=== PATIENT | male | born 1960 | race Caucasian/White ===

== ENCOUNTER 2017-09-13 19:54 | Emergency (ER) | payer SELFPAY ==
--- NOTE | 2017-09-13 20:29 | RADIOLOGY REPORT ---
EXAMINATION: XR HAND, RIGHT CLINICAL INFORMATION: Hit with baseball. Swelling. COMPARISON: None TECHNIQUE: PA, lateral, and oblique views of the right hand. FINDINGS: There is no fracture or dislocation. Alignment is anatomic. Mild degenerative changes throughout the interphalangeal joints with joint space narrowing and small osteophytes.. The soft tissues are unremarkable. IMPRESSION: No acute fracture or malalignment.
--- NOTE | 2017-09-13 20:36 | ED HAND/WRIST INJURY COMPLAINT ---
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 PT REPORTS NUMBNESS TO POINTER FINGER AND LIMITED ROM. ICE PACK APPLIED. PT REFUSES PAIN MEDICATION IN TRIAGE. Triage Nurses Notes Reviewed? yes Occurred: just prior to arrival Duration: hour(s): Timing: single episode today Injury Environment: work Severity: moderate Pain/Injury Location: Right: Hand. Context: blow Method of Injury: direct blow HPI: 57 year old male presents to the emergency room with right hand pain. 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 He did not feel his hand after getting hit with the ball but now he has a 5/10 intermittent sharp pain that does not radiate anywhere, better at rest, and worse with movement. He states he has numbness [place] the distal tip of his index finger, no numbness or tingling anywhere else. He denies bleeding. (Annetta Waddell) Past History Travel History Traveled to [place] past 21 day No Medical History Any Pertinent Medical History? see below for history Neurological: NONE EENT: NONE Cardiovascular: hypertension Respiratory: NONE Gastrointestinal: NONE Hepatic: NONE Renal: NONE Musculoskeletal: NONE Psychiatric: NONE Endocrine: diabetes Blood Disorders: NONE Cancer(s): NONE DRILL SERGEANT/Reproductive: NONE Surgical History Surgical History: non-contributory Psychosocial History What is your primary language Georgian Tobacco Use: Never used ETOH Use: denies use Family History Hx Contributory? No (Annetta Waddell) Review of Systems Review of Systems Constitutional: Reports: no symptoms. EENTM: Reports: no symptoms. Respiratory: Reports: no symptoms. Cardiovascular: Reports: no symptoms. GI: Reports: no symptoms. Genitourinary: Reports: no symptoms. Musculoskeletal: Reports: see HPI. Skin: Reports: no symptoms. Neurological/Psychological: Reports: see HPI. Hematologic/Endocrine: Reports: no symptoms. Immunologic/Allergic: Reports: no symptoms. All Other Systems: Reviewed and Negative (Soila ALONSO,Annetta Wolff) Physical Exam Physical Exam General Appearance: well developed/nourished, no apparent distress, alert, awake Head: atraumatic, normal appearance Eyes: Bilateral: normal appearance. Ears, Nose, Throat: hearing grossly normal Neck: normal inspection, supple, full range of motion Cardiovascular/Respiratory: normal peripheral pulses, no respiratory distress Back: normal inspection, normal range of motion Wrist Left: normal range of motion, normal inspection Wrist Right: normal range of motion, normal inspection, nontender Hand Left: normal inspection, normal range of motion Hand Right: ecchymosis and swelling to dorsal hand at level of 2nd metacarpal and MCP joint, ROM at index finger is limited d/t pain, passive ROM intact however pain with passive flexion Neurologic/Tendon: diminished sensation to tip of index finger, otherwise sensation intact, capillary refill intact. Skin: intact, normal color, warm/dry (Soila ALONSO,Annetta Wolff) Progress Differential Diagnosis: contusion, fracture, sprain, nerve injury Plan of Care: Patient's x-ray shows no evidence of acute fracture. He's findings were discussed with the patient. Patient has swelling, bruising, tenderness. He likely has contusion resulting from his injury. Patient to begin RICE therapy. Patient informed of possibility of a missed fracture, he has persistent symptoms he will return for repeat x-ray. Iban wrap applied here in the emergency department. Patient to begin ibuprofen for anti-inflammatory properties. Patient understands and agrees with the plan of care. Diagnostic Imaging: Viewed by Me: Radiology Read. Discussed w/RAD: Radiology Read. Radiology Impression: PATIENT: SAVANNA BRADLEY PRESENT AGE : 57 PATIENT ACCOUNT NO: [id number] : 60 LOCATION: [facility] ORDERING PHYSICIAN: Annetta ALONSO SERVICE DATE: 09/13/17 EXAM TYPE: RAD - XRY-HAND, RIGHT EXAMINATION: XR HAND, RIGHT CLINICAL INFORMATION: Hit with baseball. Swelling. COMPARISON: None TECHNIQUE: PA, lateral, and oblique views of the right hand. FINDINGS: There is no fracture or dislocation. Alignment is anatomic. Mild degenerative changes throughout the interphalangeal joints with joint space narrowing and small osteophytes.. The soft tissues are unremarkable. IMPRESSION: No acute fracture or malalignment. DICTATED BY: Sameer Cheng MD DATE/TIME DICTATED:09/13/172023 PAIN MEDICINE PHYSICIAN:KASEY DATE/TIME TRANSCRIBED:09/13/172023 CONFIDENTIAL, DO NOT COPY WITHOUT APPROPRIATE AUTHORIZATION. <Electronically signed in Other Vendor System> SIGNED BY: Sameer Cheng MD 09/13/172028 (Soila ALONSO,Annetta Wolff) Departure Departure Disposition: HOME OR SELF CARE Condition: Stable Clinical Impression Primary Impression: Hand contusion Qualifiers: Encounter type: initial encounter Laterality: right Qualified Code: S60.221A - Contusion of right hand, initial encounter Referrals: Carlyn Pitt APRN (PCP/Family) Additional Instructions: Wear Iban wrap as tolerated for compression. Begin ibuprofen 600-800 mg 3 times a day for pain and swelling. Apply ice intermittently for swelling. Symptoms should begin to improve gradually over the next week. Symptoms may be persistent for 1-2 weeks. If your symptoms are worsening or persistent please return for repeat x-rays. It is recommended that he refrain from sports and physical activity until several resolved. Please note that there might be incidental findings in your evaluation that are unrelated to the current emergency department visit. Please notify your primary care doctor about this emergency department visit in order to obtain and review all of the testing performed so that these incidental findings can be monitored as needed. If you had an x-ray performed, please understand that some fractures may not be seen on the initial set of x-rays. If your symptoms persist you might need a repeat set of x-rays to check for such a fracture. If you had a laceration evaluated, please understand that foreign bodies such as glass or wood may not be visible to the naked eye or on plain x-rays. If the wound becomes red, swollen, increasingly more painful or if there is any drainage from the wound, please have it reevaluated by a physician for the possibility of a retained foreign body. If you're unable to follow up as outlined in the discharge instructions please return to the emergency department. Thank you for choosing the [facility] Emergency Department for your care. It was a pleasure to serve you today. Departure Forms: Customer Survey General Discharge Information (Soila PA,Annetta Wolff) PA/EARLY HEAD START DIRECTOR Co-Sign Statement Statement: ED Attending supervision documentation- I saw and evaluated the patient. I have also reviewed all the pertinent lab results and diagnostic results. I agree with the findings and the plan of care as documented in the PA's/EARLY HEAD START DIRECTOR's documentation. x I have reviewed the ED Record and agree with the PA's/EARLY HEAD START DIRECTOR's documentation. [] Additions or exceptions (if any) to the PAs/EARLY HEAD START DIRECTOR's note and plan are summarized below: [] (Lisa POWERS,Adama)
[2017-09-13 21:11] VITALS: BP 141/89
== END 2017-09-13 21:25 ==
LOC: ERH 19:54
DX: S60.221A Contusion of right hand, initial encounter (principal); W21.03XA Struck by baseball, initial encounter; Y92.9 Unspecified place or not applicable; Y93.9 Activity, unspecified
CPT/HCPCS: 73130-RT